=== PATIENT | male | born 1995 | race Caucasian/White ===

== ENCOUNTER 2025-03-02 07:52 | Emergency (ER) | payer BC, SELFPAY ==
[2025-03-02 08:00] VITALS: BP 146/63; PULSE 84; RESP 24; O2SAT 95
--- NOTE | 2025-03-02 08:04 | XR_ITS ---
Examination: CT abdomen and pelvis without contrast. Coronal 3-D reconstructions. Sagittal 2-D reconstructions. Date and time of exam:March 02, 2025, 0939 hrs. Indications: Right flank pain and gross hematuria today. CTDI: vol (mGy): 9.51. DLP: (mGycm): 547. Technique: Axial images of the abdomen have been obtained, 3 mm slice thickness Intravenous contrast material has not been administered. Low dose protocols were performed. One or more of the following dose reduction techniques were used; automated exposure control, adjustment of the mA and/or KV according to patient size, use of iterative reconstruction technique. Findings: No focal liver or splenic lesions. No gallstones. Multiple 1 to 2 mm left renal calculi. Mild right hydronephrosis secondary to 2 mm distal right ureteral calculus. Normal appendix. No bowel obstruction Impression: Mild right hydronephrosis secondary to 2 mm distal right ureteral calculus.
[2025-03-02] MEDS: MORPHINE SULF INJ 4 MG/ML VIAL IVP ×2 (08:09→10:32)
[2025-03-02 08:17] LABS: Lactate (Lactic Acid) 3.2 mMol/L (0.4-2.0)
[2025-03-02 08:23] LABS: Basophils # (Auto) 0.0 Thou/mm3 (0.0-0.2); Basophils % (Auto) 1 % (0-2.5); Eosinophils # (Auto) 0.2 Thou/mm3 (0.0-0.5); Eosinophils % (Auto) 3 % (0-10); Hematocrit 48.4 % (41.0-53.0); Hemoglobin 16.8 g/dL (13.5-16.0); Immature Granulocytes Auto 0.04 Thou/mm3 (0.00-0.00); Lymphocytes # (Auto) 1.7 Thou/mm3 (1.0-4.8); Lymphocytes % (Auto) 28 % (10-50); Mean Corpuscular HGB Conc 34.7 g/dl (31.0-37.0); Mean Corpuscular Hemoglobin 31.0 pg (25.0-35.0); Mean Corpuscular Volume 89 fL (80-100); Monocytes # (Auto) 0.6 Thou/mm3 (0.0-0.8); Monocytes % (Auto) 10 % (0-12); Neutrophils # (Auto) 3.4 Thou/mm3 (1.8-7.7); Neutrophils % (Auto) 57 % (37-80); Nucleated Red Blood Cell # 0.00 Thou/mm3 (0.00-0.00); Nucleated Red Blood Cell % 0 /100 WBC (0); Platelet Count 288 Thou/mm3 (140-440); RDW Standard Deviation 41.5 fL (35.1-43.9); Red Blood Count 5.42 Miln/mm3 (4.50-5.90); White Blood Count 6.0 Thou/mm3 (3.8-10.6)
[2025-03-02] MEDS: KETOROLAC INJ 30 MG/ML VIAL IVP (08:28)
--- NOTE | 2025-03-02 08:33 | EDNOTE_ITS ---
<Statement entered by Zuleyma Sales MD - 03/03/25 06:25> I, Zuleyma Sales MD, have reviewed the history, exam, and assessment of the patient. I have evaluated the patient independently and agree with the plan of care documented by [ ]. All diagnostic studies were reviewed and discussed. I confirm the diagnosis as documented by the Resident. I was present during the Medical Decision Making for this patient. The patient's plan of care was created between myself and the Resident and consistent with our discussion of the patient's case. ED Abdominal Pain RME/HPI General Chief Complaint: Abdominal Pain Stated complaint: SEVERE ABD PAIN, URINATING BLOOD Time seen by provider: 03/02/25 08:10 Arrival date/time: 03/02/25 07:52 Source: patient RME / HPI RME / HPI narrative: Mr. Nolan is a 30-year-old male with past medical history of chronic back pain who presented to [facility] emergency department with a chief complaint of right-sided flank pain and hematuria. Patient reported that this pain started last night, intensity 10/10 radiating to the groin associated with chills, denies any fever or myalgias. Patient denies any similar episodes in the past, denies any significant past medical history denies taking any medications at home. Denies any abdominal pain nausea vomiting headache chest pain or shortness of breath. Related Data Previous Rx's ?Medication ?Instructions ?Recorded acetaminophen 500 mg tablet 500 mg PO Q8H PRN pain 7 d ays #21 03/02/25 (Tylenol Extra Strength) tabs ibuprofen 400 mg tablet 400 mg PO Q8H PRN pain 7 day s #21 03/02/25 tabs Allergies Allergy/AdvReac Type Severity Reaction Status Date / Time No Known Allergies Allergy Unverified 03/02/25 08:04 Review of Systems Review of Systems Systems Reviewed: All systems reviewed, normal except as documented Past Medical History Social History SMOKING STATUS: Never smoker ED Exam Narrative Physical exam: Physical Exam General: Awake and in moderate acute distress complaining of pain. Conversational and non-toxic appearing. HEENT: Normocephalic, atraumatic, mucous membranes moist. Heart: Regular rate and rhythm, no murmurs. Lungs: Clear to auscultation with no wheezing or crackles. Abdomen: Soft, nondistended, nontender, positive bowel sounds. ?No guarding or rebound tenderness. Neurologic: Alert and oriented x3, no gross neurological deficit, and patient able to move all 4 extremities. Extremities: No edema. Skin: No rash or ecchymoses. Course Course Course Narrative: Patient complained of severe pain on presentation was given morphine 4 mg IV push times one 1 L LR bolus Patient was given Toradol 30 mg IV push for pain management, patient was anxious was given Versed 2 mg IV push x 1 CT abdomen pelvis obtained shows 2 mm distal right ureteral calculus CBC shows hemoglobin 18.8, chloride 108 otherwise labs unremarkable Patient started on Flomax, given 1 L NS bolus, started on maintenance NS No pain was given 4 mg morphine, 1 g of Tylenol and patient's pain improved 1600 patient unable to be reports that he has tried multiple times has been trying for the last 2 hours Initial plan to place Salas catheter and discharge patient with Salas however Salas was placed and patient had no drainage Patient will be signed out to night ED physician to resume care. Quality Measures none Orders Category Date Time Status [employer] Q4H START 00 Care 03/02/25 08:07 Active Continuous Pulse Oximetry NOW Care 03/02/25 08:08 Active Fingerstick [Bedside Blood Glucose] NOW Care 03/02/25 08:08 Active Salas [Urinary Catheter] QS Care 03/02/25 16:00 Active In and Out Catheter X1 Care 03/02/25 10:48 Active Insert IV NOW Care 03/02/25 08:02 Active Strain urine for calculus ONCE Care 03/02/25 10:[address] abdomen pelvis wo con Stat Exams 03/02/25 08:04 Completed Amylase Stat Lab 03/02/25 08:05 Completed Blood Culture (Lab) Stat Lab 03/02/25 10:00 Received CBC Stat Lab 03/02/25 08:05 Completed CMP [Comprehensive Metabolic Panel] Stat Lab 03/02/25 08:05 Completed Drug Screen,Urine Stat Lab 03/02/25 11:55 Completed Lactate (Lactic Acid) Stat Lab 03/02/25 08:05 Completed Lactic Acid, 3 HR Stat Lab 03/02/25 11:28 Completed Magnesium Stat Lab 03/02/25 08:05 Completed PT [Prothrombin Time with INR] Stat Lab 03/02/25 08:05 Completed PTT [Partial Thromboplastin Time] Stat Lab 03/02/25 08:05 Completed Procalcitonin Stat Lab 03/02/25 08:05 Completed Urinalysis, C/S if Indicated Stat Lab 03/02/25 11:55 Completed Acetaminophen Ivpb [Ofirmev Inj] Med 03/02/25 10:48 Discontinued 1,000 mg in 100 ml IV X1 Ketorolac Inj [Toradol Inj] Med 03/02/25 08:24 Discontinued 30 mg IVP X1 ONE Lidocaine Jelly 2% Urojet [Xylocaine Jelly 2% Urojet] Med 03/02/25 18:06 Discontinued See Dose Instructions TOP X1 ONE Midazolam Inj [Versed Inj] Med 03/02/25 08:50 Discontinued 2 mg IVP X1 ONE Morphine* Inj Med 03/02/25 08:02 Discontinued 4 mg IVP X1 ONE Morphine* Inj Med 03/02/25 10:24 Discontinued 4 mg IVP X1 ONE Ondansetron Inj [Zofran Inj] Med 03/02/25 10:47 Active 4 mg IVP Q6HR PRN Ringers Lactated 1000 ml [Lactated Ringers] 1,000 ml Med 03/02/25 08:19 Dis continued IV 999 mls/hr Sodium Chloride 0.9% 1000 ml [Ns] 1,000 ml Med 03/02/25 10:42 Discontinued IV 125 mls/hr Sodium Chloride 0.9% 1000 ml [Ns] 1,000 ml Med 03/02/25 10:41 Discontinued IV 999 mls/hr Tamsulosin HCl [Flomax] Med 03/02/25 10:42 Discontinued 0.4 mg PO X1 ONE Vital Signs Vital signs: Vital Signs Pulse Rate 84 03/02/25 08:00 Respiratory Rate 24 H 03/02/25 08:00 Blood Pressure 146/63 H 03/02/25 08:00 Pulse Oximetry (%) 95 03/02/25 08:00 Abdominal Pain MDM MDM Narrative MDM Narrative:: # Distal ureter renal calculi, right side 2 mm # Renal colic # Acute urinary retention 30-year-old male presented to [facility] with a chief complaint of right flank pain. Patient was given IV pain medication requiring 2 doses of IV morphine, IV Toradol x 1, Versed x 1 and 1 g of IV Tylenol Patient received 2 L bolus fluid along with maintenance fluid and Flomax Patient's symptoms improved currently denies any pain though complains of acute urinary retention Initial plan to place Salas catheter and discharge patient with Salas however Salas was placed and patient had no drainage Patient will be signed out to night ED physician to resume care. Case discussed with Attending Physician Dr. Henrry Reddy MD Internal Medicine PGY-2 Disclaimer: This note was dictated by speech recognition. Minor errors in senior qc technician may be present due to voice recognition software. Patient data External records reviewed:: [facility] previous records Clinical information provided by:: patient Social determinants that could affect healthcare access:: none Patient has the following chronic illnesses:: As above How is presenting disease/condition affected by chronic disease/condition?: uneffected by Evaluation data The following diagnostics were reviewed and interpreted by me:: lab results and radiology exam(s) Lab and/or radiology exams considered but not ordered:: None Interpretation Summary: CT abdomen pelvis obtained shows 2 mm distal right ureteral calculus CBC shows hemoglobin 18.8, chloride 108 otherwise labs unremarkable Medications / Prescriptions Medications or Prescriptions considered but not ordered:: None Medication administrations:: Medication Administration History Ondansetron HCl (Ondansetron Inj 2 Mg/Ml Inj 2 Ml) 4 mg IVP Q6HR PRN; Protocol PRN Reason: NAUSEA OR VOMITING Stop: 04/01/25 10:46 Discontinued Medications Lactated Ringer's (Lactated Ringers) 1,000 mls @ 999 mls/hr IV .Q1H1M ONE Stop: 03/02/25 09:19 Last Infusion: 03/02/25 09:05 Dose: Infused Documented By: Admin: 03/02/25 08:41 Dose: 999 mls/hr Documented By: JAIME Sodium Chloride (Ns) 1,000 mls @ 999 mls/hr IV .Q1H1M ONE Stop: 03/02/25 11:41 Last Infusion: 03/02/25 12:55 Dose: Infused Documented By: Admin: 03/02/25 11:44 Dose: 999 mls/hr Documented By: JAIME Sodium Chloride (Ns) 1,000 mls @ 125 mls/hr IV .Q8H EVARISTO Stop: 04/01/25 10:41 Last Admin: 03/02/25 12:59 Dose: 125 mls/hr Documented By: JAIME Acetaminophen (Ofirmev Inj) 1,000 mg in 100 mls @ 250 mls/hr IV X1 ONE Stop: 03/02/25 11:11 Last Infusion: 03/02/25 12:15 Dose: Infused Documented By: Admin: 03/02/25 11:43 Dose: 250 mls/hr Documented By: JAIME Ketorolac Tromethamine (Ketorolac Inj 30 Mg/Ml Vial) 30 mg IVP X1 ONE Stop: 03/02/25 08:25 Last Admin: 03/02/25 08:28 Dose: 30 mg Documented By: JAIME Lidocaine HCl (Lidocaine Jelly 2% (Urojet) 10 Ml Tube) 0 ml TOP X1 ONE Stop: 03/02/25 18:07 Last Admin: 03/02/25 18:18 Dose: 10 ml Documented By: ALEX Midazolam HCl (Midazolam Inj 1 Mg/Ml Vial 2 Ml) 2 mg IVP X1 ONE Stop: 03/02/25 08:51 Last Admin: 03/02/25 08:56 Dose: 2 mg Documented By: JAIME Morphine Sulfate (Morphine Sulf Inj 4 Mg/Ml Vial) 4 mg IVP X1 ONE Stop: 03/02/25 08:03 Last Admin: 03/02/25 08:09 Dose: 4 mg Documented By: JAIME Morphine Sulfate (Morphine Sulf Inj 4 Mg/Ml Vial) 4 mg IVP X1 ONE Stop: 03/02/25 10:25 Last Admin: 03/02/25 10:32 Dose: 4 mg Documented By: JAIME Tamsulosin HCl (Tamsulosin Hcl 0.4 Mg Capsule) 0.4 mg PO X1 ONE Stop: 03/02/25 10:43 Last Admin: 03/02/25 11:56 Dose: 0.4 mg Documented By: JAIME As Above Consultations Consultation(s) initiated? (list below): No Diagnosis Differential diagnosis abdominal pain: abdominal pain and calculus of kidney Most likely diagnosis given after review of the tests above:: Renal Colic Admission Indicated Admission indicated?: not indicated Admission Request Was there a request for admission?: No Disposition Plan Disposition Plan: other (specify) (Will be signed out to Night ED Physician) Discharge Plan Plan Patient Disposition: HOME (Self Care) Patient condition on transfer: Stable Health Concerns: Catheter Care: Keep insertion site clean, and monitor for any signs of infection (redness, swelling, fever). Monitor Output: Ensure catheter is draining urine properly and watch for any changes in urine color or volume. Follow up with your primary care physician in 1 week, highly recommend a referral to urologist. Take Tylenol and ibuprofen at the same time as needed for pain. Return to emergency department if your symptoms worsen Prescriptions/Referrals Prescriptions/Med Rec: New ibuprofen 400 mg tablet 400 mg PO Q8H PRN (Reason: pain) 7 Days Qty: 21 0RF acetaminophen [Tylenol Extra Strength] 500 mg tablet 500 mg PO Q8H PRN (Reason: pain) 7 Days Qty: 21 0RF Discontinued amoxicillin-pot clavulanate 875-125 mg tablet 1 tab PO BID Qty: 14 0RF ProAir RespiClick 90 mcg/actuation aerosol powdr breath activated 2 inh inhalation QID PRN (Reason: shortness of breath or wheezing) Qty: 1 0RF ibuprofen 800 mg tablet 800 mg PO Q6H PRN (Reason: pain) Qty: 30 0RF Referrals: No Primary/Family,Physician [Primary Care Provider] - In 1 week Problem List Clinical Impression: Calculus of kidney, Acute retention of urine Patient/Caregiver Discharge Instructions Education Materials: ED Urinary Retention, Male, ED Kidney Stone w/ Colic Print Language: Colombian Stand Alone Forms: [employer] Award Info., Patient Portal Info Letter
[2025-03-02] MEDS: RINGERS LACTATED 1000 ML 1,000 ML 999 ML IV (08:41)
[2025-03-02 08:46] LABS: INR 1.0 (0.9-1.3); Partial Thromboplastin Time 26.7 Seconds (22.0-36.0); Prothrombin Time 11.1 Seconds (9.0-12.2)
[2025-03-02 08:51] LABS: Alanine Aminotransferase 24 U/L (10-49); Albumin, Serum 4.9 gm/dL (3.5-5.0); Albumin/Globulin Ratio 2.0 (1.2-2.2); Alkaline Phosphatase 61 U/L (46-116); Amylase 54 U/L (30-118); Anion Gap 13 (7-16); Aspartate Amino Transferase 23 U/L (0-34); BUN/Creatinine Ratio 8 Ratio (12-20); Bilirubin,Total 0.7 mg/dL (0.3-1.2); Blood Urea Nitrogen 9 mg/dL (9-23); Calcium 9.4 mg/dL (8.3-10.6); Calcium (Corrected) 9.4 mg/dL (8.5-10.1); Carbon Dioxide 22.1 mMol/L (20.0-31.0); Chloride 108 mMol/L (98-107); Creatinine (Component) 1.1 mg/dL (0.6-1.3); Globulin 2.5 gm/dL (2.3-3.5); Glucose 102 mg/dL (74-106); Magnesium 2.0 mg/dL (1.6-2.6); Osmolality,Calculated 283 (275-295); Potassium 4.2 mMol/L (3.4-5.1); Procalcitonin 0.05 ng/ml (0.0-0.49); Sodium 143 mMol/L (136-145); Total Protein 7.4 gm/dL (5.7-8.2); eGFR > 60 See Note
[2025-03-02] MEDS: MIDAZOLAM INJ 1 MG/ML VIAL 2 ML 2 MG IVP (08:56)
[2025-03-02 09:04] VITALS: BP 131/72; PULSE 65; RESP 19; TEMP 37.1; O2SAT 95
[2025-03-02 11:02] VITALS: BP 129/82; PULSE 87; RESP 20; TEMP 36.9; O2SAT 99
[2025-03-02 11:14] LABS: Reflex Lactate? Y
[2025-03-02 11:33] LABS: Lactic Acid, 3 HR 1.4 mMol/L (0.4-2.0)
[2025-03-02] MEDS: ACETAMINOPHEN IVPB 1,000 MG/100 ML VIAL 250 MG IV (11:43)
[2025-03-02] MEDS: SODIUM CHLORIDE 0.9% 1000 ML 1,000 ML 999 ML IV (11:44)
[2025-03-02] MEDS: TAMSULOSIN HCL 0.4 MG CAPSULE PO (11:56)
[2025-03-02 12:15] LABS: Collection Type, Urine Clean Catch; Squamous Epithelial Cell,Urine 0 /hpf (0-5)
[2025-03-02 12:37] LABS: Bilirubin,Urine Negative (Negative); Blood,Urine 3+ (Negative); Clarity,Urine Turbid (Clear/Hazy); Color,Urine Yellow (Lt Yel-Yel); Culture Indicated,Urine Not Indicated; Glucose, Urine Negative (Negative); Ketones,Urine Negative (Negative); Leukocyte Esterase,Urine Negative (Negative); Nitrite,Urine Negative (Negative); PH,Urine 7.5 (5.0-7.0); Protein,Urine 1+ (Neg - Trace); RBC,Urine 529 /hpf (0-3); Specific Gravity,Urine 1.027 (1.001-1.035); Urobilinogen,Urine Negative mg/dL (0.0-1.0); WBC,Urine < 1 /hpf (0-5)
[2025-03-02 12:44] LABS: Amphetamine/Methamp Scrn,U Negative (Negative); Barbiturate Screen,Urine Negative (Negative); Benzodiazepines Screen,Urine Positive (Negative); Benzoylecgonine Screen, Ur Negative (Negative); Fentanyl Screen,Urine Negative (Negative); Opiate Screen,Urine Positive (Negative); THC Screen,Urine Negative (Negative)
[2025-03-02] MEDS: SODIUM CHLORIDE 0.9% 1000 ML 1,000 ML 125 ML IV (12:59)
[2025-03-02 13:20] VITALS: BP 119/92; PULSE 73; RESP 18; TEMP 36.7; O2SAT 98
[2025-03-02 14:32] VITALS: BP 134/87; PULSE 76; RESP 18; TEMP 37; O2SAT 96
--- NOTE | 2025-03-02 18:00 | PC.NURSE ---
Salas catheter not draining. Removed by RN. Pt refused new Salas catheter insertion. Bladder scan done, showing 7ml volume
[2025-03-02] MEDS: LIDOCAINE JELLY 2% (Urojet) 10 ML TUBE TOP (18:18)
--- NOTE | 2025-03-02 18:21 | PD.EDADDENDU ---
Emergency Room Addendum Addendum Narrative: 1800: Care assumed from Dr. Reddy, attending Dr. Sales, the previous shift emergency physician. Past medical, surgical, social and family history reviewed. Vitals and home medications reviewed. Results and treatment plan discussed. I will assume the care of the patient at this time and will follow the patient. Please refer to the emergency department record for history and examination from initial visit. 30yo male who was diagnosed with kidney stone and had noted hematuria here with the inability to urinate who upon catheterization had minimal output. Salas catheter was discontinued and bladder scan was called for during this period. Patient abruptly eloped from the ED. At 1949, I called the patient without any success of reaching him and left him a voicemail. I gave him options to return to the ED for any further evaluation or to follow-up with his PMD.
[2025-03-02 18:22] VITALS: BP 122/68; PULSE 87; RESP 19; TEMP 36.6; O2SAT 98
--- NOTE | 2025-03-02 19:00 | PC.NURSE ---
unable to locate patient-iv in place, pd and Dr. Correia notified. Oscra, CN aware
== END 2025-03-02 19:50 | disposition home or self-care (01) ==
PROVIDERS: Emergency Provider Emergency Medicine
DX: N20.0 Calculus of kidney (principal)
CPT/HCPCS: 51702; 36415; 74176; 80053; 80307; 81001; 82150; 83605; 83735; 84145; 85025; 85610; 85730; 87040; 96361; 96374; 96375; 96376; 99284; J0131; J1885; J2250; J2270; J7030; J7120; A9270